=== PATIENT | female | born 1970 | race Caucasian/White ===

== ENCOUNTER 2016-09-23 07:35 | Emergency (ER) | payer MEDICAID ==
[~2016-09-23] VITALS: Ht 160 cm; Wt 74.0 kg
[~2016-09-23 07:35] MED LIST: TYLENOL PRN; advil; tylenol
[2016-09-23 07:38] VITALS: Ht 160 cm; Wt 74.0 kg
[2016-09-23 08:11] LABS: URINE BLOOD (Dip) POC 3+ (NEGATIVE)
--- NOTE | 2016-09-23 08:13 | ERD ---
ER Documentation Chief Complaint Date/Time DATE: 09/23/16 TIME: 08:09 Chief Complaint VAGINAL BLEEDING STARTED YESTERDAY,PELVIC PAIN HPI Patient is a 46-year-old female who presents to the emergency department with pelvic pain and vaginal bleeding 2 days. Patient states that her pain is constant in nature and is primarily in the suprapubic region. Patient reports vaginal bleeding started yesterday. Patient states she has been using 1-2 pads per day. Patient states her menstrual periods are irregular. She states her last menstrual period was approximately 6 weeks ago. Patient denies any upper abdominal pain, nausea, vomiting, fever, chills, loss of consciousness. Patient denies any chest pain or shortness of breath. Patient reports normal bowel movements daily. Patient denies any pain with urination, frequency or urgency. ROS All systems reviewed and are negative except as per history of present illness. Medications Home Meds Active Scripts Ibuprofen* (Motrin*) 600 Mg Tab, 600 MG PO Q6, #30 TAB Prov:NURIA AJ PA-C 09/23/16 Reported Medications [tylenol] No Conflict Check 06/13/10 [advil] No Conflict Check 06/13/10 [Tylenol Prn] No Conflict Check 06/30/09 Allergies Allergies: Coded Allergies: No Known Allergy (Verified , 09/23/16) PMhx/Soc History of Surgery: Yes (,appe) Anesthesia Reaction: No Hx Neurological Disorder: No Hx Respiratory Disorders: No Hx Cardiac Disorders: No Hx Psychiatric Problems: No Hx Miscellaneous Medical Probl: No Hx Alcohol Use: No Hx Substance Use: No Hx Tobacco Use: No Smoking Status: Never smoker FmHx Family History: No diabetes Physical Exam Vitals Vital Signs Date Time Temp Pulse Resp B/P Pulse Ox O2 Delivery O2 Flow Rate FiO2 09/23/16 07:38 98.3 67 18 165/86 98 Physical Exam GENERAL: Well-developed, well-nourished female. Appears in no acute distress. HEAD: Normocephalic, atraumatic. EYES: Pupils are equally reactive bilaterally. EOMs grossly intact. No conjunctival erythema. ENT: Moist mucous membranes. No uvula deviation. No kissing tonsils. NECK: Supple. No meningismus. Normal range of motion of the neck. LUNG: Clear to auscultation bilaterally. No rhonchi, wheezing, rales or coarse breath sounds. HEART: Regular rate and rhythm. No murmurs, rubs or gallops. ABDOMEN: No scars, ecchymosis or rashes noted. Soft, tender to palpation of the suprapubic region. Positive bowel sounds in all four quadrants. No rebound tenderness, no guarding. (-) McBurney's point tenderness. No CVA tenderness. BACK: No midline tenderness. EXTREMITIES: Equal pulses bilaterally. No peripheral clubbing, cyanosis or edema. No unilateral leg swelling. NEUROLOGIC: Alert and oriented. Moving all four extremities without any difficulty. Normal speech. Steady gait. SKIN: Normal color. Warm and dry. No rashes or lesions. Results 24 hrs Laboratory Tests Test 09/23/16 08:11 Bedside Urine pH (LAB) 5.5 Bedside Urine Protein (LAB) 1+ Bedside Urine Glucose (UA) Negative Bedside Urine Ketones (LAB) Negative Bedside Urine Blood 3+ Bedside Urine Nitrite (LAB) Negative Bedside Urine Leukocyte Esterase (L Negative Procedures/MDM ED COURSE: The patient was stable throughout ED course. I kept the patient and/or family informed of laboratory and diagnostic imaging results throughout the ED course. DIAGNOSTIC IMAGING: Read by radiologist. DIAGNOSTIC IMAGING REPORT Patient: BARAK REBOLLEDO : 1970 Age: 46 Sex: F MR #: [id number] [facility] #: [id number] DOS: 09/23/16 0753 Ordering MD: NURIA AJ PA-C Location: FTE Room/Bed: PROCEDURE: US Pelvis. CLINICAL INDICATION: Pelvic pain. Vaginal bleeding TECHNIQUE: Sonographic evaluation of the pelvis was performed utilizing both transabdominal and transvaginal technique.Curved array transabdominal transducer technique as well as a high frequency endovaginal probe was utilized. Images were reviewed on the high-resolution PACS workstation. COMPARISON: No prior studies are available for comparison. FINDINGS: The uterus is heterogeneous in echotexture with multiple myometrial masses or fibroids. Largest fibroid is calcified and measures 4.4 x 4.1 x 4.5 cm at the left side of the uterine body.. Overall the uterus measures 9.2 x 5.8 x 8.5 cm. There are small Nabothian cysts seen in the cervix. The endometrium is normal measuring 17.3 mm. The right ovary measures 3.1 cm in dimension. The left ovary was not well visualized. The right ovary is normal in size shape and flow.. . There are no adnexal masses. There is no significant free fluid in the pelvis. No other incidental abnormality is identified. IMPRESSION: Heterogeneous multi fibroid uterus. Largest fibroid is calcified measuring 4.5 cm at the left side uterine body. No adnexal masses or free fluid in the pelvis. RPTAT: EE .Narayan Vale MD, MD Date Time Electronically viewed and signed by .Narayan Vale MD, on 09/23/2016 09:13 .L/ CC: NURIA AJ PA-C MEDICAL DECISION MAKING: This is a 46-year-old female who presents with vaginal bleeding and pelvic pain 2 day. Vital signs were reviewed. Patient was afebrile. Urine test was negative. CBC showed no evidence of systemic infection or severe anemia. UA showed no signs of acute infection. Given these findings, the patient's presentation is most consistent with fibroids. I have a much lower clinical concern for ectopic , ovarian torsion, PID, tubo-ovarian abscess, fibroids, endometriosis, vulvovaginitis, uterine prolapse, nephrolithiasis, pyelonephritis, UTI, appendicitis, diverticulitis, bowel obstruction. Unable to rule out malignancy at this time. Patient advised to follow-up with an CREDENTIALING MANAGER for further management of her symptoms. Patient provided with a copy of all imaging studies. PRESCRIPTIONS: Ibuprofen DISCHARGE: At this time, patient is stable for discharge and outpatient management. I have instructed the patient to follow-up with his/her primary care physician in 1-2 days. I have discussed with the patient the possibility of needing to see a specialist for further workup and diagnostic studies if the pain persists. I have instructed the patient to promptly return to the ER at any time for any new or worsening symptoms including increased pain, nausea, vomiting, vaginal bleeding, weakness or fever. The patient and/or family expressed understanding of and agreement with this plan. All questions were answered. Home care instructions were provided. Departure Diagnosis: Primary Impression: Vaginal bleeding Condition: Stable Patient Instructions: Pelvic Pain, Unknown Cause Referrals: [facility] YOU HAVE RECEIVED A MEDICAL SCREENING EXAM AND THE RESULTS INDICATE THAT YOU DO NOT HAVE A CONDITION THAT REQUIRES URGENT TREATMENT IN THE EMERGENCY DEPARTMENT. FURTHER EVALUATION AND TREATMENT OF YOUR CONDITION CAN WAIT UNTIL YOU ARE SEEN IN YOUR DOCTORS OFFICE WITHIN THE NEXT 1-2 DAYS. IT IS YOUR RESPONSIBILITY TO MAKE AN APPOINTMENT FOR FOLOW-UP CARE. IF YOU HAVE A PRIMARY DOCTOR --you should call your primary doctor and schedule an appointment IF YOU DO NOT HAVE A PRIMARY DOCTOR YOU CAN CALL OUR PHYSICIAN REFERRAL HOTLINE AT IF YOU CAN NOT AFFORD TO SEE A PHYSICIAN YOU CAN CHOSE FROM THE FOLLOWING [facility] [address] [facility]. [facility] [address] [facility] [facility] [address] [facility] [address] [facility]. [facility] [address] [facility]. [facility] [address] [facility]. [facility] YOU HAVE RECEIVED A MEDICAL SCREENING EXAM AND THE RESULTS INDICATE THAT YOU DO NOT HAVE A CONDITION THAT REQUIRES URGENT TREATMENT IN THE EMERGENCY DEPARTMENT. FURTHER EVALUATION AND TREATMENT OF YOUR CONDITION CAN WAIT UNTIL YOU ARE SEEN IN YOUR DOCTORS OFFICE WITHIN THE NEXT 1-2 DAYS. IT IS YOUR RESPONSIBILITY TO MAKE AN APPOINTMENT FOR FOLOW-UP CARE. IF YOU HAVE A PRIMARY DOCTOR --you should call your primary doctor and schedule and appointment IF YOU DO NOT HAVE A PRIMARY DOCTOR YOU CAN CALL OUR PHYSICIAN REFERRAL HOTLINE AT . IF YOU CAN NOT AFFORD TO SEE A PHYSICIAN YOU CAN CHOSE FROM THE FOLLOWING [facility]: [facility] [address] [place] [address] [facility] [address] [place] [address] [facility] [address] [place] [address] CREDENTIAL[employer] [address] [facility] [address] [place] [address] [phone] FAX , JAE [address] [place], [place] [id number] DR. MONCADA, [place] [address] [place] [address] DR AZEVEDO, [facility] [address] [facility], [address], [facility] [address], [facility] [address] [place] [address] [facility] [address] [place] [address] [facility] [id number] - LETTY SANTOYO [address] [place] [address] DR KERR, MARIA LUISA [address] [facility]. [address], [place] [address] DR GAMING, [facility] [address] [place], [place] [id number] Additional Instructions: Call your primary care doctor TOMORROW for an appointment during the next 1-2 days.See the doctor sooner or return here if your condition worsens before your appointment time. NURIA AJ PA-C Sep 23, 2016 08:13
--- NOTE | 2016-09-23 09:14 | RADRPT ---
PROCEDURE: US Pelvis. CLINICAL INDICATION: Pelvic pain. Vaginal bleeding TECHNIQUE: Sonographic evaluation of the pelvis was performed utilizing both transabdominal and tr ansvaginal technique.Curved array transabdominal transducer technique as well as a high frequency en dovaginal probe was utilized. Images were reviewed on the high-resolution PACS workstation. COMPARISON: No prior studies are available for comparison. FINDINGS: The uterus is heterogeneous in echotexture with multiple myometrial masses or fibroids. Largest fib roid is calcified and measures 4.4 x 4.1 x 4.5 cm at the left side of the uterine body.. Overall th e uterus measures 9.2 x 5.8 x 8.5 cm. There are small Nabothian cysts seen in the cervix. The endom etrium is normal measuring 17.3 mm. The right ovary measures 3.1 cm in dimension. The left ovary w as not well visualized. The right ovary is normal in size shape and flow.. . There are no adnexal ma sses. There is no significant free fluid in the pelvis. No other incidental abnormality is identifi ed. IMPRESSION: Heterogeneous multi fibroid uterus. Largest fibroid is calcified measuring 4.5 cm at the left side uterine body. No adnexal masses or free fluid in the pelvis. RPTAT: EE .Narayan Vale MD, Date Time Electronically viewed and signed by .Narayan Vale MD, on 09/23/2016 09:13 .L/
[2016-09-23] MEDS ORDERED: IBUP-1542 PO (09:22)
== END 2016-09-23 09:33 | disposition home or self-care (01) ==
LOC: FTE 07:35
DX: N93.9 Abnormal uterine and vaginal bleeding, unspecified (principal); R10.2 Pelvic and perineal pain
CPT/HCPCS: 76830; 76856; 81003